=== PATIENT | female | born 1985 ===

== ENCOUNTER 2018-11-07 10:55 | Outpatient (CLI) | payer OTHER | END 2018-11-07 10:57 | disposition home or self-care (01) | LOC: RAD 10:55 | DX: N70.01 Acute salpingitis (principal) ==

== ENCOUNTER → 2019-03-21 | Emergency (ER) | payer OTHER ==
[~2019-03-21] VITALS: Ht 157.5 cm; Wt 77.1 kg
[~2019-03-21] MED LIST: AMOX1TAB5; NEXIUM20 M1; [UNRECOGNIZED DRUG - OTHER]
== END | disposition left against medical advice (07) ==
LOC: ER 12:04
DX: O46.8X1 Other antepartum hemorrhage, first trimester (principal); O26.851 Spotting complicating pregnancy, first trimester; O36.80X1 Pregnancy with inconclusive fetal viability, fetus 1; Z34.01 Encounter for supervision of normal first pregnancy, first trimester

== ENCOUNTER 2019-03-30 10:31 | Emergency (ER) | payer OTHER ==
[~2019-03-30] VITALS: Ht 157.5 cm; Wt 79.8 kg
== END 2019-03-30 16:25 | disposition home or self-care (01) ==
LOC: ER 10:31
DX: O20.8 Other hemorrhage in early pregnancy (principal); O23.32 Infections of other parts of urinary tract in pregnancy, second trimester; Z34.02 Encounter for supervision of normal first pregnancy, second trimester

== ENCOUNTER 2019-03-30 18:51 | Emergency (ER) | payer OTHER ==
[~2019-03-30] VITALS: Ht 165.1 cm; Wt 72.6 kg
== END 2019-03-30 23:21 | disposition home or self-care (01) ==
LOC: ER
DX: O03.6 Delayed or excessive hemorrhage following complete or unspecified spontaneous abortion (principal); Z34.02 Encounter for supervision of normal first pregnancy, second trimester